=== PATIENT | female | born 1990 ===

== ENCOUNTER 2016-11-16 05:35 | Emergency (ER) | payer OTHER ==
[2016-11-16 06:00] VITALS: RESP 18
[2016-11-16 06:22] VITALS: BP 109/74; PULSE 78; TEMP 97.9; O2SAT 99
== END 2016-11-16 06:17 | disposition home or self-care (01) ==
LOC: ED 05:35
DX: R55 Syncope and collapse (principal)
CPT/HCPCS: 99282

== ENCOUNTER 2017-04-03 10:24 | Emergency (ER) | payer OTHER ==
[2017-04-03 10:55] VITALS: BP 134/86; PULSE 71; RESP 20; TEMP 98.4; O2SAT 100
== END 2017-04-03 11:05 | disposition home or self-care (01) ==
LOC: ED 10:24
DX: J06.9 Acute upper respiratory infection, unspecified (principal)
CPT/HCPCS: 99282